=== PATIENT | female | born 1980 | race Caucasian/White ===

== ENCOUNTER 2017-06-26 14:41 | Emergency (ER) | END 2017-06-26 16:48 | disposition home or self-care (01) ==

== ENCOUNTER 2017-11-17 18:54 | Outpatient (CLI) | END 2017-11-17 21:34 | disposition home or self-care (01) ==

== ENCOUNTER 2017-12-07 13:01 | Outpatient (CLI) | END 2017-12-07 16:35 | disposition home or self-care (01) ==

== ENCOUNTER 2017-12-31 16:00 | Inpatient (IN) | END 2018-01-03 12:15 | disposition home or self-care (01) | DRG 775 ==